=== PATIENT | male | born 2000 | race Two or more races ===

== ENCOUNTER 2022-01-07 18:17 | Emergency (ER) | payer SELFPAY ==
[~2022-01-07] VITALS: Ht 182.9 cm; Wt 81.6 kg
[2022-01-07 18:22] VITALS: BP 122/74
[2022-01-08] MEDS ORDERED: NAP500T PO (01:09)
== END 2022-01-08 01:17 | disposition left against medical advice (07) ==
LOC: EDBD 18:17 → ER 18:22
DX: S01.511A Laceration without foreign body of lip, initial encounter (principal); V43.52XA Car driver injured in collision with other type car in traffic accident, initial encounter; Y93.89 Activity, other specified; Y92.410 Unspecified street and highway as the place of occurrence of the external cause; Y99.8 Other external cause status
CPT/HCPCS: 70450; 70486; 72125